=== PATIENT | female | born 1980 | race Caucasian/White ===

== ENCOUNTER 2018-06-20 16:46 | Emergency (ER) | payer OTHER ==
[~2018-06-20] VITALS: Ht 162.6 cm; Wt 136.1 kg
[2018-06-20] MEDS ORDERED: HYDROCHLOROTH12.5 M1 PO (16:52)
[2018-06-20] MEDS ORDERED: SYNTHROID100 MC1 PO (16:53)
[2018-06-20 17:13] LABS: URINE BILIRUBIN NEGATIVE (Negative); URINE BLOOD NEGATIVE (Negative); URINE CLARITY CLEAR; URINE COLOR YELLOW; URINE GLUCOSE-RANDOM* NEGATIVE (Negative); URINE KETONES NEGATIVE (Negative); URINE LEUKOCYTES-REFLEX NEGATIVE (Negative); URINE NITRITE-REFLEX NEGATIVE (Negative); URINE PROTEIN (DIPSTICK) NEGATIVE (Negative); URINE UROBILINOGEN 0.2 E.U./dl (0.2-1.0)
[2018-06-20 18:54] LABS: ABSOLUTE NEUTROPHILS 6.9 thou/uL (1.4-8.2); BASOPHILS 1.4 % (0.0-2.0); EOSINOPHILS 2.6 % (0.0-3.0); HEMATOCRIT 28.5 % (37.0-47.0); HEMOGLOBIN 8.8 gm/dL (12.0-15.0); LYMPHOCYTES 19.7 % (24.0-44.0); MCH 22.4 pg (26.0-34.0); MCHC 30.9 g/dL (28.0-37.0); MCV 72.3 fL (80.0-100.0); PLATELET COUNT 365 thou/uL (150-400); POLYS 69.3 % (36.0-66.0); RBC 3.94 mil/uL (4.20-5.00); RDW 19.9 % (10.5-14.5); WBC 9.9 thou/uL (4.0-11.0)
[2018-06-20 19:04] LABS: ANION GAP 10 mmol/L (7-16); BUN 11 mg/dL (7-18); CALCIUM 9.1 mg/dL (8.5-10.1); CHLORIDE 102 mmol/L (98-107); CO2 27 mmol/L (21-32); CREATININE 0.8 mg/dL (0.6-1.0); GLUCOSE 143 mg/dL (74-106); POTASSIUM 4.1 mmol/L (3.5-5.1); SODIUM 139 mmol/L (136-145)
[2018-06-20 19:12] LABS: TROPONIN-I <0.06 ng/mL (<0.06)
[2018-06-20 19:31] LABS: ANISOCYTOSIS 2+; BURR CELLS OCCASIONAL; HYPOCHROMASIA 2+; MICROCYTES 1+
[2018-06-20] MEDS ORDERED: ZPAK PO (20:12)
[2018-06-20 20:34] VITALS: BP 188/83
--- NOTE | 2018-06-21 14:15 | EKG ---
[place] [address] [employer] 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1980 Requested By: Chris Chávez Order Number: [id number] MD: Fabián Azar Measurements Intervals [place] Rate: 101 P: 36 GA: 146 QRS: -2 QRSD: 91 T: 47 QT: 349 QTc: 453 Interpretive Statements Sinus tachycardia Otherwise normal tracing No previous ECG available for comparison Electronically Signed On 06-21-2018 14:14:44 CDT by Fabián Azar [email or web address] ��������������������������������������������� <ELECTRONICALLY SIGNED> ���������������������������������������� By: Fabián Azar MD, [facility] ��������������������������������������������� 06/21/18 1414 1721 1721 Fabián Azar MD, FAC /EPI
== END 2018-06-20 20:39 | disposition home or self-care (01) ==
LOC: ER 16:46
PROVIDERS: Emergency Medicine
DX: J18.8 Other pneumonia, unspecified organism (principal); D64.9 Anemia, unspecified; R60.0 Localized edema; F17.210 Nicotine dependence, cigarettes, uncomplicated; I10 Essential (primary) hypertension; E05.90 Thyrotoxicosis, unspecified without thyrotoxic crisis or storm; E03.9 Hypothyroidism, unspecified; Z90.49 Acquired absence of other specified parts of digestive tract; Z88.6 Allergy status to analgesic agent

== ENCOUNTER 2018-06-27 08:51 | Emergency (ER) | payer OTHER ==
[~2018-06-27] VITALS: Ht 162.6 cm; Wt 136.1 kg
[~2018-06-27 08:51] MED LIST: HYDROCHLOROTH12.5 M1 PO; SYNTHROID100 MC1 PO; ZPAK PO
[2018-06-27 09:20] LABS: URINE BILIRUBIN NEGATIVE (Negative); URINE BLOOD 3+ (Negative); URINE CLARITY CLEAR; URINE GLUCOSE-RANDOM* NEGATIVE (Negative); URINE KETONES NEGATIVE (Negative); URINE LEUKOCYTES-REFLEX NEGATIVE (Negative); URINE NITRITE-REFLEX NEGATIVE (Negative); URINE PROTEIN (DIPSTICK) 1+ (Negative); URINE SPECIFIC GRAVITY <= 1.005 (1.005-1.035); URINE UROBILINOGEN 0.2 E.U./dl (0.2-1.0)
[2018-06-27 09:22] LABS: URINE COLOR PINK
[2018-06-27 09:27] LABS: ABSOLUTE NEUTROPHILS 5.2 thou/uL (1.4-8.2); BASOPHILS 1.1 % (0.0-2.0); EOSINOPHILS 3.4 % (0.0-3.0); HEMATOCRIT 29.6 % (37.0-47.0); HEMOGLOBIN 9.4 gm/dL (12.0-15.0); LYMPHOCYTES 27.2 % (24.0-44.0); MCH 22.6 pg (26.0-34.0); MCHC 31.7 g/dL (28.0-37.0); MCV 71.1 fL (80.0-100.0); MONOCYTES 9.5 % (1.0-8.0); PLATELET COUNT 374 thou/uL (150-400); POLYS 58.8 % (36.0-66.0); RBC 4.16 mil/uL (4.20-5.00); RDW 19.1 % (10.5-14.5); WBC 8.8 thou/uL (4.0-11.0)
[2018-06-27 09:35] LABS: ANION GAP 7 mmol/L (7-16); BUN 8 mg/dL (7-18); CHLORIDE 104 mmol/L (98-107); CO2 27 mmol/L (21-32); CREATININE 0.8 mg/dL (0.6-1.0); GLUCOSE 116 mg/dL (74-106); POTASSIUM 3.5 mmol/L (3.5-5.1); SODIUM 138 mmol/L (136-145)
[2018-06-27 09:45] LABS: ALBUMIN 3.3 g/dL (3.4-5.0); SGOT 24 U/L (15-37); SGPT 37 U/L (30-65); TOTAL BILIRUBIN 0.6 mg/dL (<0.1-1.0); TOTAL PROTEIN 7.9 g/dL (6.4-8.2); TROPONIN-I <0.06 ng/mL (<0.06)
[2018-06-27 09:52] LABS: SQUAMOUS >10 Many /LPF (0-3)
[2018-06-27 09:53] LABS: CASTS None Seen /LPF (None Seen); CRYSTALS None Seen /LPF (None Seen); URINE RBC >20 Many /HPF (0-2)
[2018-06-27 09:54] LABS: BACTERIA-REFLEX 1-9 Few /HPF (None Seen); URINE WBC-REFLEX 0-5 Rare /HPF (0-5)
[2018-06-27 10:24] LABS: ANISOCYTOSIS 2+; POLYCHROMASIA OCCASIONAL
[2018-06-27 10:25] LABS: HYPOCHROMASIA 2+; MICROCYTES 1+
[2018-06-27] MEDS ORDERED: LASIX 20 MG TAB20 MG PO ×2 (11:24→11:28)
[2018-06-27] MEDS ORDERED: IRON325 PO ×2 (11:26→11:28)
[2018-06-27 11:43] VITALS: BP 139/67
== END 2018-06-27 11:44 | disposition home or self-care (01) ==
LOC: ER 08:51
PROVIDERS: Emergency Medicine
DX: R60.0 Localized edema (principal); R09.89 Other specified symptoms and signs involving the circulatory and respiratory systems; F17.210 Nicotine dependence, cigarettes, uncomplicated; I10 Essential (primary) hypertension; E05.90 Thyrotoxicosis, unspecified without thyrotoxic crisis or storm; Z90.49 Acquired absence of other specified parts of digestive tract; Z88.6 Allergy status to analgesic agent

== ENCOUNTER 2019-01-12 19:31 | Emergency (ER) | payer OTHER ==
[~2019-01-12] VITALS: Ht 165.1 cm; Wt 136.1 kg
[~2019-01-12 19:31] MED LIST changes: +IRON325 PO; +LASIX 20 MG TAB20 MG PO
[2019-01-12 19:35] VITALS: BP 164/83
[2019-01-12] MEDS ORDERED: MOBIC7.5 MG PO (20:09)
[2019-01-12] MEDS ORDERED: MEDROLDOSEPACK PO (20:09)
[2019-01-12] MEDS ORDERED: NORFLEX100 MG PO (20:09)
== END 2019-01-12 20:32 | disposition home or self-care (01) ==
LOC: ER 19:31
DX: M54.41 Lumbago with sciatica, right side (principal); I10 Essential (primary) hypertension; E03.9 Hypothyroidism, unspecified; F17.210 Nicotine dependence, cigarettes, uncomplicated; Z90.49 Acquired absence of other specified parts of digestive tract; Z88.6 Allergy status to analgesic agent